=== PATIENT | male | born 1945 | race Caucasian/White ===

== ENCOUNTER → 2017-07-19 | Outpatient (CLI) | payer MEDICARE, BC | END | disposition home or self-care (01) | LOC: ECHO 12:34 | DX: I73.9 Peripheral vascular disease, unspecified (principal); I36.1 Nonrheumatic tricuspid (valve) insufficiency; I65.23 Occlusion and stenosis of bilateral carotid arteries | CPT/HCPCS: 93306; 93880 ==

== ENCOUNTER → 2018-11-29 | Outpatient (CLI) | payer MEDICARE, BC ==
[2018-06-13 11:00] VITALS: BP 120/54
[~2018-11-29] MED LIST: ACET325T9 PO; AMIO200T4 PO; ASPI-482 PO; ASPI81TA50 PO; CRESTOR20 MG PO; CRESTOR5 MG PO; FERR325T58 PO; HYDR-2761 PO; LISI2.5T PO; METH4TAB7 PO; METO25TA4 PO; NITR0.4T22 SL; OXYC1TAB15 PO; PANT40TA77 PO; TAMS0.4C2 PO
--- NOTE | 2018-11-29 16:11 | RAD ---
Carotid doppler ultrasound History: Coronary artery disease, right ICA stenosis Multiple grayscale, color, and duplex spectral analysis waveform sonographic images were acquired of the carotid, subclavian, and vertebral arteries. Comparison: 07/19/2017 Findings: RIGHT: PSV cm/sec EDV cm/sec Common carotid artery 87 18 Maximal internal carotid artery 172 64 External carotid artery 102 Vertebral artery 52 ICA/CCA ratio 1.98 LEFT: PSV cm/sec EDV cm/sec Common carotid artery 111 31 Maximum internal carotid artery 121 37 External carotid artery 146 Vertebral artery 73 ICA/CCA ratio 1.08 Velocities used to determine stenosis are known to correlate with NASCET angiographic criteria. There is antegrade flow in the bilateral vertebral arteries. There is again moderate eccentric plaque bilateral carotid bulbs extending into proximal internal and external carotid arteries. Previous greatest right ICA velocity was 146 cm/s, previous greatest left ICA PSV 87 cm/s. Impression: 1. There is again velocity elevation of the mid right internal carotid artery which may be seen with 50-69% luminal diameter reduction. Maximal left ICA velocity elevation may be seen with less than 50% luminal diameter reduction although velocities greater than previous exam. There is moderate plaque of the carotid bulbs bilaterally extending into the proximal internal and external carotid arteries. Electronically signed by: Brent Waters MD (11/29/2018 4:08 PM) [facility]
== END | disposition home or self-care (01) ==
LOC: US 11:58
PROVIDERS: ATTEND Internal Medicine Cardiovascular Disease
DX: I65.23 Occlusion and stenosis of bilateral carotid arteries (principal); I25.10 Atherosclerotic heart disease of native coronary artery without angina pectoris; I21.4 Non-ST elevation (NSTEMI) myocardial infarction
CPT/HCPCS: 93880

== ENCOUNTER → 2019-06-12 | Outpatient (CLI) | payer MEDICARE, BC ==
[2018-06-13 11:00] VITALS: BP 120/54
--- NOTE | 2019-06-12 13:09 | CARD ---
MR#: [id number] Date of Study: 06/12/2019 Ordering Physician: PRICILLA RAMOS, Referring Physician: PRICILLA RAMOS, Tech: Noris Huerta APPROVED REPORT EXAM: Two-dimensional and M-mode echocardiogram with Doppler and color Doppler. Other Information Quality : AverageHR: 64bpm INDICATION Cardiac Disease: CAD RISK FACTORS Hypertension Hyperlipidemia 2D DIMENSIONS RVDd3.0 (2.9-3.5cm)Left Atrium(2D)2.7 (1.6-4.0cm) IVSd1.0 (0.7-1.1cm)Aortic Root(2D)3.0 (2.0-3.7cm) LVDd4.8 (3.9-5.9cm)LVOT Diameter2.2 (1.8-2.4cm) PWd1.0 (0.7-1.1cm)LVDs2.9 (2.5-4.0cm) FS (%) 40.5 %SV76.4 ml LVEF(%)71.1 (>50%) Aortic Valve AoV Peak Arnaud.188.8cm/sAoV VTI34.9cm AO Peak GR.14.3mmHgLVOT Peak Arnaud.88.3cm/s LVOT VTI 17.28cmAO Mean GR.7mmHg EDUIN (VMAX)1.14ch1GJW (VTI)1.84cm2 AI P 1/2 Vefq305jq Mitral Valve MV E Kokvmvqx30.3cm/sMV DECEL [id number] MV A Mwhxlhlm19.3cm/sMV E Mean Gr.1mmHg MV XBL63fvM/A Ratio0.7 MVA (PHT)3.17cm2 Tricuspid Valve TR P. Uztrmnnv659jf/sRAP [id number] TR Peak Gr.25dwYrHXRF27vvId Pulmonary Vein S1 Qyjjyynn35.4cm/sD2 Jdpgbpth87.1cm/s PVa [id number] LEFT VENTRICLE The left ventricle is normal size. There is normal left ventricular wall thickness. The left ventricu lar systolic function is normal. The Ejection Fraction is 55-60%. There is normal LV segmental wall m otion. Transmitral Doppler flow pattern is Grade I-abnormal relaxation pattern. RIGHT VENTRICLE The right ventricle is borderline dilated. There is normal right ventricular wall thickness. The righ t ventricular systolic function is normal. ATRIA The left atrium size is normal. The right atrium size is normal. The interatrial septum is intact wit h no evidence for an atrial septal defect or patent foramen ovale as noted on 2-D or Doppler imaging. AORTIC VALVE The aortic valve is calcified but opens well. Doppler and Color Flow revealed mild aortic regurgitati on. There is no significant aortic valvular stenosis. MITRAL VALVE The mitral valve is normal in structure and function. There is no evidence of mitral valve prolapse. There is no mitral valve stenosis. Doppler and Color-flow revealed trace mitral regurgitation. TRICUSPID VALVE The tricuspid valve is normal in structure and function. Doppler and Color Flow revealed trace tricus pid regurgitation with an estimated PAP of 28 mmHg. There is no tricuspid valve stenosis. PULMONIC VALVE The pulmonic valve is not well visualized. Doppler and Color Flow revealed no pulmonic valvular regur gitation. GREAT VESSELS The aortic root is normal in size. The IVC is normal in size and collapses >50% with inspiration. PERICARDIAL EFFUSION There is no evidence of significant pericardial effusion. Critical Notification Critical Value: No <Conclusion> The left ventricular systolic function is normal. The Ejection Fraction is 55-60%. There is normal LV segmental wall motion. Transmitral Doppler flow pattern is Grade I-abnormal relaxation pattern. Mild aortic regurgitation. Trace mitral regurgitation. Trace tricuspid regurgitation with an estimated PAP of 28 mmHg. There is no evidence of significant pericardial effusion. Signed by : Sergio Soto, Electronically Approved : 06/12/2019 13:08:55
== END | disposition home or self-care (01) ==
LOC: ECHO 10:35
PROVIDERS: ATTEND Internal Medicine Cardiovascular Disease
DX: I35.1 Nonrheumatic aortic (valve) insufficiency (principal); I25.10 Atherosclerotic heart disease of native coronary artery without angina pectoris
CPT/HCPCS: 93306

== ENCOUNTER → 2020-02-05 | Outpatient (CLI) | payer MEDICARE, BC ==
[2018-06-13 11:00] VITALS: BP 120/54
--- NOTE | 2020-02-05 12:08 | RAD ---
MR#: [id number] Date of Study: 02/05/2020 Ordering Physician: PRICILLA RAMOS, Referring Physician: PRICILLA RAMOS, Tech: Sea Muñoz MBA, RDMS, RVT, RDCS, RTR APPROVED REPORT Patient Location: OUT-PATIENT Laterality:Bilateral Indications PVD/PREVIOUS STENOSIS Doppler Spectral Velocity Analysis Right Left pCCA 87/21 cm/spCCA 128/29 cm/s mCCA 88/24 cm/smCCA 112/27 cm/s dCCA 86/17 cm/sdCCA 101/26 cm/s Bulb 101/21 cm/sBulb 95/25 cm/s ECA 136/ cm/sECA 175/ cm/s pICA 151/48 cm/spICA 99/26 cm/s Corrina 120/22 cm/smICA 100/36 cm/s dICA 140/32 cm/sdICA 106/36 cm/s Vert. 47/ cm/sVert. 82/ cm/s Subcl. 167/ cm/sSubcl. 198/ cm/s ICA/CCA 1.72ICA/CCA 0.83 Findings Bilateral grayscale images of the carotid vessels demonstrates mild to moderate diffuse plaque and in timal hyperplasia. On the right side there is overall 50 to 69% stenosis based on velocity criteria in the proximal inte rnal carotid artery. On the left side there is overall 0 to less than 50% stenosis based on velociti es. Normal ICA to CCA ratios bilaterally. Bilateral vertebral velocities are antegrade. No significant subclavian stenosis identified. Critical Notification Critical Value: No <Conclusion> 1. Moderate right-sided carotid arterial disease, otherwise no significant obstruction noted. Signed by : Pricilla Ramos, Electronically Approved : 02/05/2020 12:07:45
== END | disposition home or self-care (01) ==
LOC: US 10:31
PROVIDERS: ATTEND Internal Medicine Cardiovascular Disease
DX: I65.23 Occlusion and stenosis of bilateral carotid arteries (principal); I77.3 Arterial fibromuscular dysplasia
CPT/HCPCS: 93880

== ENCOUNTER → 2021-04-03 | Outpatient (CLI) | payer MEDICARE, BC ==
[2018-06-13 11:00] VITALS: BP 120/54
[~2021-04-03] MED LIST changes: -AMIO200T4 PO; +AMIO200T53 PO; -LISI2.5T PO; +LISI2.5T12 PO
--- NOTE | 2021-04-03 10:37 | [facility]IC ---
CT HEAD INDICATION: Reason: Episode of transient global amnesia. / Spl. Instructions: / History: Hx. bypass. COMPARISON: None Available. Exposure: One or more of the following individualized dose reduction techniques were utilized for thi s examination: 1. Automated exposure control 2. Adjustment of the mA and/or kV according to patient size 3. Use of iterative reconstruction technique TECHNIQUE: 5 mm contiguous axial images were obtained from the skull base to the vertex in both bone and soft tissue algorithm. FINDINGS: No abnormal attenuation within the brain parenchyma. No evidence of acute intracranial hemorrhage. No extra-axial fluid collections. No mass effect or midline shift. Ventricular size is appropriate. Basal cisterns are patent. No fractures identified.De La Cruz-white differentiation is preserved.Globes and orbits are within normal l imits. Paranasal sinuses and mastoid air cells are clear. IMPRESSION: No acute intracranial findings. Electronically signed by: Uche Kenny MD (04/03/2021 10:34 AM) [id number]
== END ==
LOC: KCIC CT 09:41
PROVIDERS: ATTEND Family Medicine
DX: G45.4 Transient global amnesia (principal)
CPT/HCPCS: 70450